=== PATIENT | female | born 1975 | race Caucasian/White ===

== ENCOUNTER 2016-08-07 14:08 | Day surgery (SDC) | END 2016-08-07 16:33 | disposition home or self-care (01) | DX: K64.8 Other hemorrhoids (principal); E66.01 Morbid (severe) obesity due to excess calories; Z68.41 Body mass index [BMI] 40.0-44.9, adult | CPT/HCPCS: 45378; 84703; Z7610 ==

== ENCOUNTER 2016-10-06 12:24 | Day surgery (SDC) | payer BC ==
[~2016-10-06] VITALS: Ht 162.6 cm; Wt 105.6 kg
[~2016-10-06 12:24] MED LIST: NAPROXEN
[2016-10-06 12:37] VITALS: BP 103/64; PULSE 70; RESP 20
[2016-10-06 14:00] VITALS: Ht 162.6 cm; Wt 105.6 kg
[2016-10-06] MEDS ORDERED: ibuprofen (14:16)
[2016-10-06 16:18] VITALS: BP_SYST 103; BP_SYST 108; BP_DIAS 61; BP_DIAS 64; PULSE 70; RESP 20
--- NOTE | 2016-10-10 05:50 | GILP ---
DATE OF PROCEDURE: 10/06/2016 DATE: 09/16/2016. NAME OF PROCEDURE: Esophagogastroduodenoscopy with biopsies. SURGEON: Nelida Kaplan MD. BRIEF HISTORY AND INDICATIONS: The patient is being evaluated for dyspepsia. PREMEDICATION: Monitored anesthesia care by anesthesiologist. INSTRUMENT USED: Olympus panendoscope. TECHNIQUE: After informed consent, with the patient/relatives understanding the procedure, its indic ations, potential risks and complications, including but not limited to: allergic reaction, bleeding , perforation or infection, and after all pertinent questions were answered to the patient's satisfa ction, the patient/relatives signed witnessed informed consent. Following this, premedication was administered slowly IV push under careful cardiovascular and respi ratory monitoring with pulse oximetry, automatic blood pressure and satellite project site monitor. Once the sedative effect was achieved the patient was place in the left lateral decubitus, the panen doscope was introduced and advanced under visual control. Careful examination of the upper gastrointestinal tract, both on insertion as well as withdrawal of the instrument disclosed the following findings: ESOPHAGUS: The distal esophagus shows erythema, edema, and superficial erosion of the mucosa. Biops ies were obtained to rule out Navas esophagus. STOMACH: Upon entrance to the stomach air was insufflated, the gastric pierre distended normally. T here is erythema and edema of the mucosa of a moderate degree. Biopsies were obtained to rule out H . pylori infection. PYLORUS: The pylorus appears patent and within normal limits, with no evidence of gastric outlet obs truction. DUODENUM: The duodenal mucosa was carefully examined in the duodenal bulb as well as the second port ion of the duodenum and appears unremarkable with no evidence of duodenitis, ulcer or neoplasm. The instrument was then withdrawn, the patient tolerated the procedure well and was transfer out of the endoscopy suite awake, and in good condition to continue recovery under observation IMPRESSION: 1. Erosive esophagitis. 2. Rule out Navas esophagus. Biopsies were obtained. 3. Gastritis, rule out Helicobacter pylori infection, biopsies obtained. PLAN: The patient will be treated with PPIs. Further recommendation will depend on the patient's c linical course as well as review of biopsies. Dictated By: NELIDA KAPLAN MS/YUNG Conf#: [id number] DID#: [id number]
== END 2016-10-06 20:13 | disposition home or self-care (01) ==
LOC: GIL 12:24
PROVIDERS: ATTEND Internal Medicine Gastroenterology
DX: K20.9 Esophagitis, unspecified (principal); K29.70 Gastritis, unspecified, without bleeding; E66.01 Morbid (severe) obesity due to excess calories; Z68.41 Body mass index [BMI] 40.0-44.9, adult
CPT/HCPCS: 43239; 88305; 88312; 88313; Z7610

== ENCOUNTER 2017-05-09 12:22 | Emergency (ER) | payer BC ==
[~2017-05-09] VITALS: Ht 160 cm; Wt 103.0 kg
[~2017-05-09 12:22] MED LIST changes: +ibuprofen
[2017-05-09 12:27] VITALS: Ht 160 cm; Wt 103.0 kg
--- NOTE | 2017-05-09 14:18 | ERD ---
ER Documentation Chief Complaint Chief Complaint abd pain with n/v/d 1 week HPI 41-year-old female, with history of cholecystectomy and left kidney stones, presents to the emergency department complaining of 1 week with progressive abdominal pain located in epigastric area, radiated to the back. The patient is dull, 8/10, associated with persistent nausea, and diarrhea 3 yesterday. The patient denies fevers, chills. She has not taken any medication for this problem ROS SYSTEMIC symptoms: No fever, no chills, no night sweats EYE symptoms: No eyesight problems. OTOLARYNGEAL symptoms: No hearing loss. CARDIOVASCULAR symptoms: No chest pain or discomfort, no palpitations. PULMONARY symptoms: No dyspnea, no cough, no wheezing. GASTROINTESTINAL symptoms: + abdominal pain, + nausea, + vomiting SKIN no rashes MUSCULOSKELETAL symptoms: No arthralgias, no muscle aches. NEUROLOGY symptoms: No headache, no confusion, no syncope, no numbness or tingling. All systems reviewed and are negative except as per history of present illness. Medications Home Meds Active Scripts Hydrocodone/Acetaminophen ([place] 5-325 Tablet) 1 Each Tablet, 1 TAB PO Q6H Y for PAIN, #12 TAB Prov:JOANNE DE JESUS MD 05/09/17 Ondansetron (Ondansetron Odt) 4 Mg Tab.rapdis, 4 MG PO Q6H Y for NAUSEA AND/OR VOMITING, #10 TAB Prov:JOANNE DE JESUS MD 05/09/17 Ranitidine Hcl* (Zantac*) 150 Mg Tablet, 150 MG PO BID Y for EPIGASTRIC PAIN, # 30 TAB Prov:JOANNE DE JESUS MD 05/09/17 Ciprofloxacin Hcl* (Ciprofloxacin Hcl*) 500 Mg Tablet, 250 MG PO BID for 5 Days , TAB Prov:JOANNE DE JESUS MD 05/09/17 Reported Medications [ibuprofen] No Conflict Check 10/06/16 [Naproxen] No Conflict Check 08/07/16 Allergies Allergies: Coded Allergies: No Known Allergy (Unverified , 10/06/16) PMhx/Soc History of Surgery: Yes (cholecystectomy) Anesthesia Reaction: No Hx Neurological Disorder: No Hx Respiratory Disorders: No Hx Cardiac Disorders: No Hx Psychiatric Problems: No Hx Miscellaneous Medical Probl: Yes (kidney stone) Hx Alcohol Use: No Hx Substance Use: No Hx Tobacco Use: No Smoking Status: Never smoker Physical Exam Vitals Vital Signs Date Time Temp Pulse Resp B/P Pulse Ox O2 Delivery O2 Flow Rate FiO2 05/09/17 16:42 98.3 74 18 112/66 99 Room Air 05/09/17 12:27 98.7 94 20 119/74 98 Physical Exam Patient is in no acute distress, vital signs stable. Alert and fully oriented. EYES: PERRLA, EOMI, Sclera and conjunctiva appear normal. EARS: Canals clear, tympanic membranes WNL THROAT: Normal oropharynx. NECK: Supple, No lymphadenopathy. Full ROM without pain or tenderness. HEART: RRR, no rubs, murmurs, clicks or gallops. LUNGS: Clear to auscultation. ABDOMEN: Soft, non-tender without masses or hepatosplenomegaly. EXTREMITIES: No edema bilaterally. MUSC: Full ROM, no deformity, normal back exam Result Diagram: 05/09/17 1406 05/09/17 1406 Results 24 hrs Laboratory Tests Test 05/09/17 14:06 05/09/17 14:30 White Blood Count 10.110^3/ul Red Blood Count 4.4010^6/ul Hemoglobin 12.4g/dl Hematocrit 37.1% Mean Corpuscular Volume 84.3fl Mean Corpuscular Hemoglobin 28.2pg Mean Corpuscular Hemoglobin Concent 33.4g/dl Red Cell Distribution Width 12.5% Platelet Count 57537^3/UL Mean Platelet Volume 11.0fl Neutrophils % 68.1% Lymphocytes % 25.6% Monocytes % 4.8% Eosinophils % 0.9% Basophils % 0.4% Nucleated Red Blood Cells % 0.0/100WBC Neutrophils # 6.910^3/ul Lymphocytes # 2.610^3/ul Monocytes # 0.510^3/ul Eosinophils # 0.110^3/ul Basophils # 0.010^3/ul Nucleated Red Blood Cells # 0.010^3/ul Sodium Level 144mmol/L Potassium Level 4.4mmol/L Chloride Level 106mmol/L Carbon Dioxide Level 26mmol/L Anion Gap 16 Blood Urea Nitrogen 13mg/dl Creatinine 0.84mg/dl Glucose Level 92mg/dl Calcium Level 9.4mg/dl Total Bilirubin 0.2mg/dl Direct Bilirubin 0.00mg/dl Indirect Bilirubin 0.2mg/dl Aspartate Amino Transf (AST/SGOT) 23IU/L Alanine Aminotransferase (ALT/SGPT) 33IU/L Alkaline Phosphatase 108IU/L Total Protein 8.5g/dl Albumin 4.6g/dl Globulin 3.90g/dl Albumin/Globulin Ratio 1.17 Lipase 68U/L Urine Color YELLOW Urine Clarity SLIGHTLY CLOUDY Urine pH 6.0 Urine Specific [place] 1.015 Urine Ketones NEGATIVEmg/dL Urine Nitrite NEGATIVEmg/dL Urine Bilirubin NEGATIVEmg/dL Urine Urobilinogen NEGATIVEmg/dL Urine Leukocyte Esterase 1+Digna/ul Urine Microscopic RBC 3/HPF Urine Microscopic WBC 4/HPF Urine Squamous Epithelial Cells MODERATE/HPF Urine Hemoglobin 2+mg/dL Urine Glucose NEGATIVEmg/dL Urine Total Protein NEGATIVEmg/dl Current Medications Medications (Trade) Dose Ordered Sig/Jake Route PRN Reason Start Time Stop Time Status Last Admin Dose Admin Sodium Chloride (NS) 1,000 ml @ 1,000 mls/hr Q1H STAT IV 05/09/17 14:25 05/09/17 15:24 DC 05/09/17 14:38 Ondansetron HCl (Zofran Inj) 4 mg ONCE STAT IV 05/09/17 14:25 05/09/17 14:28 DC 05/09/17 14:38 Famotidine (Pepcid Iv) 20 mg ONCE STAT IV 05/09/17 14:25 05/09/17 14:28 DC 05/09/17 14:36 Ketorolac Tromethamine (Toradol) 30 mg ONCE STAT IV 05/09/17 14:25 05/09/17 14:28 DC 05/09/17 14:37 Patient: RENETTA ROJAS : 1975 Age: 41 Sex: F MR #: [id number] DOS: 05/09/17 1425 Ordering MD: JOANNE DE JESUS MD Location: [facility] Room/Bed: PROCEDURE: CT Abdomen and Pelvis without contrast. CLINICAL INDICATION: Abdominal pain, painful urination TECHNIQUE: CT of the abdomen and pelvis was performed on a multi-detector scanner without IV contrast. Coronal and sagittal images were reformatted from the axial data set. One or more of the following dose reduction techniques were used: automated exposure control, adjustment of the mA and/or kV according to patient size, use of iterative reconstruction technique. CTDI = 20.54 mGy. DLP = 1359.21 mGy-cm. COMPARISON: None. FINDINGS: The lung bases are clear. The heart size is normal, without pericardial effusion. Gallbladder is surgically absent. Liver, biliary tree, pancreas, spleen, adrenal glands and right kidney are unremarkable. Nonobstructive left renal calculus is identified, without ureterolithiasis or obstructive uropathy. The stomach is grossly unremarkable. The aorta is of normal caliber. There is no retroperitoneal lymphadenopathy. The amalia hepatis region is clear. No bowel obstruction, free intraperitoneal air or abscess is identified. There is no diverticulosis, diverticulitis, colitis or appendicitis. Urinary bladder, uterus and adnexa are grossly unremarkable. No pelvic mass, free fluid or lymphadenopathy is identified. The surrounding osseous structures are unremarkable. No osteolytic or osteoblastic lesion is detected. IMPRESSION: 1. Gallbladder is surgically absent. 2. Nonobstructive left renal calculus is seen, without ureterolithiasis or obstructive uropathy. 3. No mass, lymphadenopathy, or focal acute inflammatory process is identified. RPTAT: AAQQ .Yrn Paige MD, MD Date Time Electronically viewed and signed by .Yrn Paige MD, MD on 05/09/2017 15: 42 .R/ CC: JOANNE DE JESUS MD [facility] 41-year-old female, complains of worsening of abdominal pain, The patient has history of a left kidney stone and cholecystectomy. Differential diagnosis includes: Gastritis, gastroenteritis, peptic ulcer, pancreatitis. Physical examination showed a benign abdomen without peritoneal signs. Laboratory data showed normal liver function test, normal kidney function, normal lipase. At this time no suspicion for acute abdomen, the patient received IV hydration, Toradol and Zofran presenting improvement of her symptoms. The CT of the abdomen reports a nonobstructive left renal calculus without retrolithiasis or obstructive uropathy. The patient will be discharged home with a prescription for antibiotics and pain medication. Departure Diagnosis: Primary Impression: Renal colic Additional Impression: Left nephrolithiasis Additional Instructions: Thank you very much for allowing us to participate in your care. It was a pleasure seen you today here at [facility]. Have prescriptions filled and follow precisely the directions on the label. Follow-up with primary care provider during the next 4 days and bring all the information and medications prescribed. If illness has not improved in 2 days, then make an appointment with primary care provider. If the provider is unavailable, return to the Emergency Department immediately. JOANNE Ibarra MD May 09, 2017 14:18
[2017-05-09] MEDS ORDERED: ONDANSETRON 4 MG INJ IV STA (14:25)
[2017-05-09] MEDS ORDERED: KETOROLAC 30 MG INJ IV STA (14:25)
[2017-05-09] MEDS ORDERED: FAMOTIDINE 20 MG INJ IV STA (14:25)
[2017-05-09] MEDS ORDERED: SOD CHLORIDE 0.9% 1,000 ML IV STA (14:25)
[2017-05-09 14:58] LABS: BASOPHILS % 0.4 % (0.0-2.0); EOSINOPHILS # 0.1 10^3/ul (0.0-0.5); EOSINOPHILS % 0.9 % (0.0-7.0); HEMATOCRIT 37.1 % (37.0-47.0); HEMOGLOBIN 12.4 g/dl (12.0-16.0); LYMPHOCYTES # 2.6 10^3/ul (0.8-2.9); LYMPHOCYTES % 25.6 % (15.0-51.0); MEAN CORPUSCULAR HEMOGLOBIN 28.2 pg (29.0-33.0); MEAN CORPUSCULAR HGB CONC 33.4 g/dl (32.0-37.0); MEAN CORPUSCULAR VOLUME 84.3 fl (82.0-101.0); MONOCYTE # 0.5 10^3/ul (0.3-0.9); MONOCYTES % 4.8 % (0.0-11.0); NEUTROPHIL # 6.9 10^3/ul (1.6-7.5); NEUTROPHILS % 68.1 % (39.0-77.0); PLATELET COUNT 289 10^3/UL (140-415); RED CELL DISTRIBUTION WIDTH 12.5 % (11.5-14.5); WHITE BLOOD COUNT 10.1 10^3/ul (4.8-10.8)
[2017-05-09 15:00] LABS: ADD UMIC YES; UR ASCORBIC ACID NEGATIVE (NEGATIVE); UR BILIRUBIN (Dip) NEGATIVE (NEGATIVE); UR BLOOD (Dip) 2+ mg/dL (NEGATIVE); UR CLARITY SLIGHTLY CLOUDY (CLEAR); UR COLOR YELLOW (YELLOW); UR GLUCOSE (Dip) NEGATIVE (NEGATIVE); UR KETONES (Dip) NEGATIVE (NEGATIVE); UR LEUKOCYTE ESTERASE (Dip) 1+ Leu/ul (NEGATIVE); UR NITRITE (Dip) NEGATIVE (NEGATIVE); UR RBC 3 /HPF (0-5); UR SPECIFIC GRAVITY (Dip) 1.015 (1.003-1.030); UR SQUAMOUS EPITHELIAL CELL MODERATE /HPF (FEW); UR TOTAL PROTEIN (Dip) NEGATIVE (NEGATIVE); UR UROBILINOGEN (Dip) NEGATIVE (NEGATIVE)
[2017-05-09 15:23] LABS: ALBUMIN 4.6 g/dl (3.3-4.9); ALBUMIN/GLOBULIN RATIO 1.17; BILIRUBIN,INDIRECT 0.2 mg/dl (0-1.1); BILIRUBIN,TOTAL 0.2 mg/dl (0.2-1.3); CALCIUM 9.4 mg/dl (8.4-10.2); CREATININE 0.84 mg/dl (0.44-1.00); POTASSIUM 4.4 mmol/L (3.5-5.1); TOTAL PROTEIN 8.5 g/dl (6.1-8.1)
--- NOTE | 2017-05-09 15:42 | RADRPT ---
PROCEDURE: CT Abdomen and Pelvis without contrast. CLINICAL INDICATION: Abdominal pain, painful urination TECHNIQUE: CT of the abdomen and pelvis was performed on a multi-detector scanner without IV contr ast. Coronal and sagittal images were reformatted from the axial data set. One or more of the foll owing dose reduction techniques were used: automated exposure control, adjustment of the mA and/or k V according to patient size, use of iterative reconstruction technique. CTDI = 20.54 mGy. DLP = 135 9.21 mGy-cm. COMPARISON: None. FINDINGS: The lung bases are clear. The heart size is normal, without pericardial effusion. Gallbladder is s urgically absent. Liver, biliary tree, pancreas, spleen, adrenal glands and right kidney are unremar kable. Nonobstructive left renal calculus is identified, without ureterolithiasis or obstructive uro judy. The stomach is grossly unremarkable. The aorta is of normal caliber. There is no retroperitoneal lymphadenopathy. The amalia hepatis reg ion is clear. No bowel obstruction, free intraperitoneal air or abscess is identified. There is no diverticulosis, diverticulitis, colitis or appendicitis. Urinary bladder, uterus and adnexa are grossly unremarkabl e. No pelvic mass, free fluid or lymphadenopathy is identified. The surrounding osseous structures are unremarkable. No osteolytic or osteoblastic lesion is detect ed. IMPRESSION: 1. Gallbladder is surgically absent. 2. Nonobstructive left renal calculus is seen, without ureterolithiasis or obstructive uropathy. 3. No mass, lymphadenopathy, or focal acute inflammatory process is identified. RPTAT: AAQQ .Yrn Paige MD, MD Date Time Electronically viewed and signed by .Yrn Paige MD, MD on 05/09/2017 15:42 .R/
[2017-05-09] MEDS ORDERED: RANI150T9 PO (16:28)
[2017-05-09] MEDS ORDERED: HYDR-906 PO (16:28)
[2017-05-09] MEDS ORDERED: ONDA4TAB14 PO (16:28)
[2017-05-09] MEDS ORDERED: CIPR500T4 PO (16:28)
[2017-05-09 16:42] VITALS: BP 112/66; PULSE 74; RESP 18; TEMP 98.3
== END 2017-05-09 16:43 | disposition home or self-care (01) ==
LOC: FTE 12:22
DX: N20.0 Calculus of kidney (principal)
CPT/HCPCS: 36415; 74176; 80053; 81001; 83690; 85025; 96374; 96375; 99285; J1885; J2405; J7030; Z7610

== ENCOUNTER 2017-08-31 09:55 | Day surgery (SDC) | END 2017-08-31 17:40 | disposition home or self-care (01) ==

== ENCOUNTER 2018-02-04 01:06 | Emergency (ER) | END 2018-02-04 05:55 | disposition home or self-care (01) ==

== ENCOUNTER 2019-03-12 22:13 | Emergency (ER) | payer BC ==
[~2019-03-12] VITALS: Ht 162.6 cm; Wt 112.4 kg
[~2019-03-12 22:13] MED LIST changes: +IBUP800T48 PO; -NAPROXEN; +ONDA4TAB14 PO; +RANI150T35 PO; +SUCR1TAB56 PO; -ibuprofen
[2019-03-12 22:16] VITALS: Ht 162.6 cm; Wt 112.4 kg
[2019-03-12] MEDS ORDERED: ONDANSETRON (ODT) 4 MG TAB ODT STA (22:34)
[2019-03-12] MEDS ORDERED: HYDROCODONE/APAP (10/325) TAB PO ONE (23:00)
[2019-03-13 00:30] VITALS: BP 118/86; PULSE 77; RESP 18
== END 2019-03-13 01:00 | disposition home or self-care (01) ==
LOC: E/R 22:13
DX: R10.84 Generalized abdominal pain (principal); G89.18 Other acute postprocedural pain
CPT/HCPCS: 36415; 74176; 80048; 81001; 81025; 85025; 99284; Z7610